=== PATIENT | female | born 1980 | race Two or more races ===

== ENCOUNTER 2017-05-02 20:16 | Inpatient (IN) | payer MEDICAID ==
[~2017-05-02] VITALS: Ht 157.5 cm; Wt 85.1 kg
[2017-05-02 20:49] LABS: Urine Bilirubin Negative (Negative); Urine Blood Negative /uL (Negative); Urine Color Yellow (Yellow); Urine Glucose Normal (Normal); Urine Ketone Negative (Negative); Urine Mucus FEW (None Seen); Urine Nitrite POSITIVE (Negative); Urine RBC <1 /hpf (0 - 4); Urine Squamous Epithelial Cell MOD /hpf (<5); Urine Urobilinogen Normal (Negative); Urine pH 5.5 (5.0-8.0)
[2017-05-02 21:14] LABS: Basophils # (auto) 0 uL; Basophils % (auto) 0.4 % (0.0-2.0); CONDITION Y; DEFINITIVE SEE PRINTOUT; Eosinophils # (auto) 0.3 uL; Eosinophils % (auto) 2.7 % (0.0-7.0); Hematocrit 37.1 % (36.0-46.0); Hemoglobin 12.2 g/dL (12.2-16.2); Lymphocytes # (auto) 1.6 uL; Lymphocytes % (auto) 15.4 % (10.0-50.0); Mean Corpuscular Hemoglobin 26.3 pg (28.0-32.0); Mean Corpuscular Hgb Conc. 32.8 g/dL (32.0-36.0); Mean Corpuscular Volume 80.1 fL (80.0-100.0); Mean Platelet Volume 7.8 fL (7.4-10.4); Monocytes # (auto) 0.1 uL; Monocytes % (auto) 1.3 % (0.0-12.0); Neutrophils # (auto) 8.4 uL; Neutrophils % (auto) 80.2 % (37.0-80.0); Platelet Count (auto) 480 10^3/uL (140-450); Red Cell Distribution Width 14.8 % (11.6-16.0); White Blood Cell 10.4 10^3/uL (4.4-10.8)
[2017-05-02 21:28] LABS: Albumin 3.5 g/dL (3.4-5.0); BUN/Creatinine Ratio 17.7; Bilirubin, Total 0.2 mg/dL (0.2-1.0); Calcium 9.1 mg/dL (8.5-10.1); Potassium 4.1 mmol/L (3.5-5.1); Total Protein 7.8 g/dL (6.4-8.2)
[2017-05-02 21:34] LABS: INR 0.93 (0.9-1.15); Partial Thromboplastin Time 29.2 sec (22.64-33.71); Prothrombin Time 10.1 sec (9.37-12.3)
[2017-05-02] MEDS ORDERED: HYDROmorphone HCL 2 MG/ML VL IV ONE (22:45)
[2017-05-02] MEDS ORDERED: ONDANSETRON HCL 4 MG/2 ML VIAL IV ONE (22:45)
[2017-05-02] MEDS ORDERED: cefTRIAXone 1GM/50ML D5W 50 ML IV ONE (23:15)
[2017-05-02] MEDS ORDERED: metroNIDAZOLE 500MG/100ML 100 ML IV ONE (23:15)
[2017-05-02] MEDS ORDERED: SODIUM CHLORIDE 0.9% 1,000 ML IV ONE (23:15)
[2017-05-03] MEDS ORDERED: TEMAZEPAM 15 MG CAP PO PRN (04:45)
[2017-05-03] MEDS ORDERED: ONDANSETRON HCL 4 MG/2 ML VIAL IV PRN (04:45)
[2017-05-03] MEDS ORDERED: ACETAMINOPHEN 325 MG TAB PO PRN (04:45)
[2017-05-03] MEDS: SODIUM CHLORIDE 0.9% 1,000 ML IV SCH ×2 (05:02→14:45)
[2017-05-03] MEDS: metroNIDAZOLE 500MG/100ML 100 ML IV SCH ×3 (05:59→22:33)
[2017-05-03] MEDS ORDERED: ceFAZolin 1GM/50ML D5W 50 ML IV ONE (07:50)
[2017-05-03] MEDS ORDERED: fentaNYL CITRATE 100 MCG/2 ML VL ONE (08:09)
[2017-05-03] MEDS ORDERED: MIDAZOLAM HCL 1MG/1ML-2 ML VIAL ONE (08:09)
[2017-05-03] MEDS ORDERED: PROPOFOL 10 MG/ML 20 ML IV ONE (08:11)
[2017-05-03] MEDS ORDERED: ROCURONIUM 10MG/ML 10ML VIAL IV ONE (08:11)
[2017-05-03] MEDS ORDERED: METOCLOPRAMIDE HCL 5MG/ml INJ 2ml VIAL ONE (09:08)
[2017-05-03] MEDS ORDERED: DEXAMETHASONE SOD PHOS 10MG/1ML VIAL INJ ONE (09:08)
[2017-05-03] MEDS ORDERED: ONDANSETRON HCL 4 MG/2 ML VIAL ONE (09:08)
[2017-05-03] MEDS ORDERED: NEOSTIGMINE 1 MG/ML INJ (10mg/10ML VIAL) ONE (09:10)
[2017-05-03] MEDS ORDERED: GLYCOPYRROLATE 0.2 MG/ML 1ML VIAL ONE ×2 (09:10→09:12)
[2017-05-03] MEDS ORDERED: ONDANSETRON HCL 4 MG/2 ML VIAL IV ONE (09:15)
[2017-05-03] MEDS ORDERED: fentaNYL CITRATE 100 MCG/2 ML VL IV PRN (09:15)
[2017-05-03] MEDS ORDERED: NALOXONE HCL 0.4 MG/ML VIAL IV PRN (09:15)
[2017-05-03] MEDS: HYDROmorphone HCL 2 MG/ML VL IV PRN ×5 (09:35→10:15)
[2017-05-03] MEDS: PANTOPRAZOLE 40 MG/10 ML VIAL IV SCH (10:00)
[2017-05-03] MEDS: MORPHINE SULF INJ 2 MG/ML SYRINGE 1ML IV PRN ×3 (11:09→20:56)
[2017-05-03] MEDS: HYDROcodone-ACET 5/325MG TAB PO PRN ×2 (12:57→16:55)
[2017-05-03 13:00] VITALS: BP 125/80
[2017-05-03 17:28] VITALS: BP 130/71
[2017-05-03 20:00] VITALS: BP 128/66
[2017-05-03 22:00] VITALS: BP 128/66
[2017-05-04] VITALS (7 sets, daily range): BP systolic 104–128; BP diastolic 49–70
[2017-05-04] MEDS: MORPHINE SULF INJ 2 MG/ML SYRINGE 1ML IV PRN ×5 (03:30→22:06)
[2017-05-04] MEDS: HYDROcodone-ACET 5/325MG TAB PO PRN ×4 (05:27→20:08)
[2017-05-04] MEDS: SODIUM CHLORIDE 0.9% 1,000 ML IV SCH ×3 (05:27→22:06)
[2017-05-04] MEDS: metroNIDAZOLE 500MG/100ML 100 ML IV SCH ×3 (05:28→22:05)
[2017-05-04 06:36] LABS: Basophils # (auto) 0 uL; Basophils % (auto) 0.3 % (0.0-2.0); CONDITION Y; DEFINITIVE SEE PRINTOUT; Eosinophils # (auto) 0 uL; Hematocrit 35.1 % (36.0-46.0); Hemoglobin 11.6 g/dL (12.2-16.2); Lymphocytes # (auto) 1.2 uL; Lymphocytes % (auto) 7.3 % (10.0-50.0); Mean Corpuscular Hemoglobin 26.6 pg (28.0-32.0); Mean Corpuscular Volume 80.7 fL (80.0-100.0); Monocytes # (auto) 0.9 uL; Monocytes % (auto) 5.5 % (0.0-12.0); Neutrophils # (auto) 13.8 uL; Neutrophils % (auto) 86.9 % (37.0-80.0); Platelet Count (auto) 516 10^3/uL (140-450); Red Cell Distribution Width 15.4 % (11.6-16.0); White Blood Cell 15.9 10^3/uL (4.4-10.8)
[2017-05-04 07:07] LABS: Albumin 3.1 g/dL (3.4-5.0); BUN/Creatinine Ratio 7.8; Bilirubin, Total 0.3 mg/dL (0.2-1.0); Calcium 8.8 mg/dL (8.5-10.1); Potassium 3.9 mmol/L (3.5-5.1); Total Protein 7.1 g/dL (6.4-8.2)
[2017-05-04] MEDS: cefTRIAXone 1GM/50ML D5W 50 ML IV SCH ×2 (09:00→10:26)
[2017-05-04] MEDS: PANTOPRAZOLE 40 MG/10 ML VIAL IV SCH (10:26)
[2017-05-05] MEDS: HYDROcodone-ACET 5/325MG TAB PO PRN ×4 (01:52→19:52)
[2017-05-05 05:00] VITALS: BP 100/64
[2017-05-05] MEDS: metroNIDAZOLE 500MG/100ML 100 ML IV SCH ×3 (05:38→22:35)
[2017-05-05] MEDS: SODIUM CHLORIDE 0.9% 1,000 ML IV SCH ×2 (06:28→17:00)
[2017-05-05] MEDS: MORPHINE SULF INJ 2 MG/ML SYRINGE 1ML IV PRN ×4 (06:29→22:00)
[2017-05-05 09:00] VITALS: BP 104/65
[2017-05-05] MEDS: PANTOPRAZOLE 40 MG/10 ML VIAL IV SCH (09:05)
[2017-05-05] MEDS: cefTRIAXone 1GM/50ML D5W 50 ML IV SCH (09:06)
[2017-05-05 13:00] VITALS: BP 111/59
[2017-05-05 17:00] VITALS: BP 125/72
[2017-05-05 22:00] VITALS: BP 104/62
[2017-05-06] MEDS: HYDROcodone-ACET 5/325MG TAB PO PRN ×3 (01:44→15:24)
[2017-05-06] MEDS: MORPHINE SULF INJ 2 MG/ML SYRINGE 1ML IV PRN ×4 (02:07→21:38)
[2017-05-06] MEDS: SODIUM CHLORIDE 0.9% 1,000 ML IV SCH ×2 (03:27→12:37)
[2017-05-06 05:00] VITALS: BP 122/71
[2017-05-06] MEDS: metroNIDAZOLE 500MG/100ML 100 ML IV SCH ×3 (05:54→21:25)
[2017-05-06 09:00] VITALS: BP 112/63
[2017-05-06] MEDS: cefTRIAXone 1GM/50ML D5W 50 ML IV SCH (09:02)
[2017-05-06] MEDS: PANTOPRAZOLE 40 MG/10 ML VIAL IV SCH (10:00)
[2017-05-06 13:00] VITALS: BP 98/62
[2017-05-06 16:41] VITALS: BP 108/70
[2017-05-06 22:00] VITALS: BP 115/60
[2017-05-07] MEDS: SODIUM CHLORIDE 0.9% 1,000 ML IV SCH ×3 (00:23→18:45)
[2017-05-07] MEDS: MORPHINE SULF INJ 2 MG/ML SYRINGE 1ML IV PRN ×4 (02:11→19:00)
[2017-05-07 05:00] VITALS: BP 88/54
[2017-05-07] MEDS: metroNIDAZOLE 500MG/100ML 100 ML IV SCH ×3 (05:57→21:52)
[2017-05-07 09:00] VITALS: BP 100/59
[2017-05-07] MEDS: cefTRIAXone 1GM/50ML D5W 50 ML IV SCH (09:00)
[2017-05-07] MEDS: HYDROcodone-ACET 5/325MG TAB PO PRN ×3 (09:01→21:56)
[2017-05-07] MEDS: PANTOPRAZOLE 40 MG/10 ML VIAL IV SCH (10:20)
[2017-05-07 13:00] VITALS: BP 96/59
[2017-05-07 17:00] VITALS: BP 105/49
[2017-05-07 20:00] VITALS: BP 98/62
[2017-05-07 22:00] VITALS: BP 98/62
[2017-05-08] MEDS: MORPHINE SULF INJ 2 MG/ML SYRINGE 1ML IV PRN ×5 (00:29→20:07)
[2017-05-08] MEDS: HYDROcodone-ACET 5/325MG TAB PO PRN ×4 (03:38→18:09)
[2017-05-08] MEDS: SODIUM CHLORIDE 0.9% 1,000 ML IV SCH ×2 (04:53→14:50)
[2017-05-08 05:00] VITALS: BP 106/56
[2017-05-08] MEDS: metroNIDAZOLE 500MG/100ML 100 ML IV SCH ×2 (05:34→13:43)
[2017-05-08 08:00] VITALS: BP 108/54
[2017-05-08 09:00] VITALS: BP 108/54
[2017-05-08] MEDS: cefTRIAXone 1GM/50ML D5W 50 ML IV SCH (09:07)
[2017-05-08] MEDS: PANTOPRAZOLE 40 MG/10 ML VIAL IV SCH (09:08)
[2017-05-08 13:05] VITALS: BP 98/54
[2017-05-08 17:00] VITALS: BP 101/58
[2017-05-08 21:38] VITALS: BP 102/55
[2017-05-08] MEDS: DOCUSATE SOD 100 MG CAP PO SCH (21:38)
[2017-05-09] MEDS: SODIUM CHLORIDE 0.9% 1,000 ML IV SCH ×2 (01:27→10:45)
[2017-05-09] MEDS: MORPHINE SULF INJ 2 MG/ML SYRINGE 1ML IV PRN ×3 (01:28→12:14)
[2017-05-09] MEDS: HYDROcodone-ACET 5/325MG TAB PO PRN ×3 (05:09→16:23)
[2017-05-09 05:52] VITALS: BP 111/62
[2017-05-09 06:07] LABS: Basophils # (auto) 0 uL; Basophils % (auto) 0.4 % (0.0-2.0); CONDITION Y; DEFINITIVE SEE PRINTOUT; Eosinophils # (auto) 0.5 uL; Hematocrit 35.2 % (36.0-46.0); Hemoglobin 11.5 g/dL (12.2-16.2); Lymphocytes # (auto) 2.1 uL; Lymphocytes % (auto) 22.5 % (10.0-50.0); Mean Corpuscular Hemoglobin 26.3 pg (28.0-32.0); Mean Corpuscular Hgb Conc. 32.7 g/dL (32.0-36.0); Mean Corpuscular Volume 80.5 fL (80.0-100.0); Mean Platelet Volume 7.4 fL (7.4-10.4); Monocytes # (auto) 0.6 uL; Monocytes % (auto) 6.7 % (0.0-12.0); Neutrophils # (auto) 6.2 uL; Neutrophils % (auto) 65.4 % (37.0-80.0); Platelet Count (auto) 517 10^3/uL (140-450); Red Cell Distribution Width 15.5 % (11.6-16.0); White Blood Cell 9.5 10^3/uL (4.4-10.8)
[2017-05-09 06:28] LABS: Calcium 8.7 mg/dL (8.5-10.1); Potassium 4.4 mmol/L (3.5-5.1)
[2017-05-09 06:30] LABS: BUN/Creatinine Ratio 18.2
[2017-05-09 08:53] VITALS: BP 102/82
[2017-05-09] MEDS: cefTRIAXone 1GM/50ML D5W 50 ML IV SCH (09:00)
[2017-05-09] MEDS: DOCUSATE SOD 100 MG CAP PO SCH (09:29)
[2017-05-09] MEDS: PANTOPRAZOLE 40 MG/10 ML VIAL IV SCH (09:29)
[2017-05-09 11:30] VITALS: BP 99/56
[2017-05-09 16:33] VITALS: BP 131/51
[2017-05-09 16:37] VITALS: BP 99/56
== END 2017-05-09 18:10 | disposition home or self-care (01) | DRG 223 ==
LOC: ER 20:22 → OVERFLOW 20:23 → EAST 05-03 10:57
PROVIDERS: ADMIT Nurse Practitioner; ATTEND Internal Medicine
PROC: 0DJD4ZZ Inspection of Lower Intestinal Tract, Percutaneous Endoscopic Approach (ICD-10-PCS; 2017-05-03)
PROC: 0DTJ0ZZ Resection of Appendix, Open Approach (ICD-10-PCS; principal; 2017-05-03 08:09)
DX: K35.80 Unspecified acute appendicitis (principal); K66.8 Other specified disorders of peritoneum; E66.01 Morbid (severe) obesity due to excess calories; N39.0 Urinary tract infection, site not specified; F17.210 Nicotine dependence, cigarettes, uncomplicated; Z83.3 Family history of diabetes mellitus; Z53.31 Laparoscopic surgical procedure converted to open procedure; Z82.49 Family history of ischemic heart disease and other diseases of the circulatory system; Z68.34 Body mass index [BMI] 34.0-34.9, adult
CPT/HCPCS: 36415; 74176; 80048; 80053; 81001; 81025; 82150; 83690; 85025; 85610; 85730; 86850; 86900; 86901; 87070; 87075; 87076; 87077; 87086; 87088; 87186; 87205; 96365; 96367; 96375; C9113; J0690; J0696; J1100; J2250; J2405; J2704; J3490

== ENCOUNTER 2021-02-26 03:09 | Emergency (ER) | payer MEDICAID, OTHER ==
[~2021-02-26] VITALS: Ht 149.9 cm; Wt 78.0 kg
[2021-02-26 04:04] VITALS: BP 132/74
== END 2021-02-26 04:50 | disposition home or self-care (01) ==
LOC: ER 03:09
DX: S50.11XA Contusion of right forearm, initial encounter (principal); F17.210 Nicotine dependence, cigarettes, uncomplicated; X19.XXXA Contact with other heat and hot substances, initial encounter; Y93.89 Activity, other specified; Y92.89 Other specified places as the place of occurrence of the external cause; Y99.0 Civilian activity done for income or pay